=== PATIENT | male | born 1990 | race Caucasian/White ===

== ENCOUNTER 2024-04-08 07:54 | Emergency (ER) | payer OTHER ==
[~2024-04-08] VITALS: Ht 175.3 cm; Wt 104.3 kg
[2024-04-08 08:01] VITALS: BP_SYST 151; PULSE 92; RESP 18; TEMP 97.2; O2SAT 99
[2024-04-08 08:23] LABS: BASOPHILS % (AUTO) 0.4 % (0.0-2.0); EOSINOPHILS # (AUTO) 0.2 K/uL (0.0-0.4); EOSINOPHILS % (AUTO) 2.3 % (0.0-4.0); HEMATOCRIT 47.8 % (36-54); HEMOGLOBIN 16.1 g/dL (14.0-18.0); LYMPHOCYTES # (AUTO) 2.9 K/uL (1.0-5.5); LYMPHOCYTES % (AUTO) 30.6 % (20.5-51.5); MEAN CORPUSCULAR HEMOGLOBIN 29 pg (27-31); MEAN CORPUSCULAR HGB CONC 34 % (32-36); MEAN CORPUSCULAR VOLUME 85 fL (79.0-98.0); MONOCYTES # (AUTO) 0.9 K/uL (0.0-1.0); MONOCYTES % (AUTO) 9.9 % (1.7-9.3); NEUTROPHILS # (AUTO) 5.3 K/uL (1.8-7.7); NEUTROPHILS % (AUTO) 56.8 % (40.0-70.0); PLATELET COUNT (AUTO) 215 K/uL (130-430); RED BLOOD CELL COUNT(AUTO) 5.65 MIL/uL (4.2-6.2); RED CELL DISTRIBUTION WIDTH 12.8 % (9.0-15.0); WHITE BLOOD COUNT (AUTO) 9.4 K/uL (4.8-10.8)
[2024-04-08 08:27] LABS: BILIRUBIN,URINE NEGATIVE (NEGATIVE); BLOOD, URINE NEGATIVE (NEGATIVE); CLARITY/URINE CLEAR (CLEAR); COLOR,URINE YELLOW (YELLOW); GLUCOSE,URINE NEGATIVE (NEGATIVE); KETONES,URINE NEGATIVE (NEGATIVE); LEUKOCYTE ESTERASE ,URINE NEGATIVE (NEGATIVE); NITRITE, URINE NEGATIVE (NEGATIVE); PROTEIN URINE NEGATIVE (NEGATIVE); UROBILINOGEN,URINE 0.2 (0.2-1.0)
[2024-04-08 08:43] LABS: CALCIUM 9.4 mg/dL (8.4-11.0); CREATININE 1.33 mg/dL (0.55-1.30); POTASSIUM 3.5 mmol/L (3.5-5.1); TOTAL BILIRUBIN 0.6 mg/dL (0.0-1.0); TOTAL PROTEIN, SERUM 7.7 g/dL (6.4-8.3)
[2024-04-08 08:53] LABS: BILIRUBIN,DIRECT 0.2 mg/dL (0.0-0.3)
[2024-04-08 09:06] LABS: PROTHROMBIN TIME 10.5 SECS (9.5-12.5)
[2024-04-08] MEDS ORDERED: HYDR-3927 PO (09:24)
[2024-04-08] MEDS ORDERED: IBUP-1971 PO (09:24)
[2024-04-08 09:32] VITALS: TEMP 97.2
[2024-04-08 09:37] VITALS: BP_SYST 121; PULSE 83; RESP 18; O2SAT 96
== END 2024-04-08 09:37 | disposition home or self-care (01) ==
LOC: SED 07:54
DX: R10.32 Left lower quadrant pain (principal); R22.42 Localized swelling, mass and lump, left lower limb
CPT/HCPCS: 36415; 80048; 80076; 81001; 81003; 82150; 83605; 83690; 85025; 85610; 85730; 93971; 99284